=== PATIENT | female | born 1960 | race African-American/Black ===

== ENCOUNTER 2019-06-29 08:17 | Day surgery (SDC) ==
[2019-06-16 08:19] LABS: URINE SOURCE CLEAN CATCH
[2019-06-16 08:31] LABS: BASO# 0.05 X1000 (0.0-0.2); BASO% 0.5 % (0.0-0.8); EOS% 1.9 % (0.0-10.0); HEMATOCRIT 41.2 % (37.0-47.0); HEMOGLOBIN 13.3 g/dL (12.0-16.0); IMM GRAN# 0.02 X1000 (0.0-0.04); IMM GRAN% 0.2 % (0.0-0.5); LYMPH# 4.06 X1000 (1.2-3.4); LYMPH% 39.4 % (20.5-51.1); MCH 27.1 PG (27-31); MCHC 32.3 g/dL (33-37); MCV 84.1 FL (81-99); MONO# 0.68 X1000 (0.11-0.59); MONO% 6.6 % (1.7-9.3); MPV 11.4 FL (7.4-10.4); NEUT# 5.29 X1000 (1.4-6.5); NEUT% 51.4 % (42.2-75.2); PLT 261 X1000 (130-400); RDW 14.3 % (11.5-14.5)
[2019-06-16 08:32] LABS: BILIRUBIN URINE NEGATIVE (NEGATIVE); BLOOD URINE SMALL (NEGATIVE); COLOR YELLOW; GLUCOSE URINE NEGATIVE (NEGATIVE); KETONE URINE TRACE mg/dL (NEGATIVE); LEUKOCYTES URINE NEGATIVE (NEGATIVE); NITRITE URINE NEGATIVE (NEGATIVE); PH URINE 5.5; PROTEIN URINE 300 mg/dL (NEGATIVE); SP GRAVITY URINE 1.028; TURBIDITY URINE CLEAR (CLEAR); UR EPITHELIAL CELLS <10 /HPF (<10); URINE BACTERIA 2+ /HPF; URINE WBC <10 /HPF (<10); UROBILINOGEN URINE 2 mg/dL (NORMAL)
[2019-06-16 08:36] LABS: INR 0.93; PROTIME 12.6 Seconds (11.0-16.0)
[2019-06-16 08:38] LABS: HEMOGLOBIN A1C 5.5 % (4.8-6.0)
[2019-06-16 08:45] LABS: AGAP 14; BUN 13 mg/dL (8-22); CALCIUM 10.1 mg/dL (8.8-10.2); CHLORIDE 105 mmol/L (98-107); COSMO 284; CREATININE 0.7 mg/dL (0.5-0.9); ESTIMATED GFR > 60; GLUCOSE 87 mg/dL (70-104); POTASSIUM 3.7 mmol/L (3.5-5.1); SODIUM 143 mmol/L (136-145); TCO2 24 mmol/L (25-35)
--- NOTE | 2019-06-16 08:48 | EKG Report ---
Test Performed on : 06/16/2019 07:49:27 AM Test Reason : PAT Blood Pressure : / mmHG Vent. Rate : 094 BPM Atrial Rate : 094 BPM P-R Int : 150 ms QRS Dur : 096 ms QT Int : 366 ms P-R-T Axes : 063 060 025 degrees QTc Int : 457 ms Normal sinus rhythm. Septal infarct , age undetermined Abnormal ECG No previous ECGs available Confirmed by Yanelis HARDWICK, Hernandez Alvarez ([id number]) on 06/17/2019 7:42:27 PM
[2019-06-29] MEDS ORDERED: PEPCID ONE (08:27)
[2019-06-29] MEDS ORDERED: COLACE ONE (08:27)
[2019-06-29] MEDS ORDERED: REGLAN ONE (08:27)
[2019-06-29] MEDS ORDERED: LR 1,000 ML ONE (08:28)
[2019-06-29] MEDS ORDERED: KEFZOL 1 GM/D5W 2 GM/100 ML IVPB ONE (08:28)
[2019-06-29] MEDS ORDERED: LYRICA ONE (08:28)
[2019-06-29] MEDS ORDERED: VERSED ONE ×2 (09:52→10:53)
[2019-06-29] MEDS ORDERED: FENTANYL ONE (09:53)
[2019-06-29] MEDS ORDERED: SODIUM CHLORIDE 0.9% ONE (10:11)
[2019-06-29] MEDS ORDERED: TORADOL ONE (10:11)
[2019-06-29] MEDS ORDERED: CYKLOKAPRON 1,000 MG/NS 1,000 MG/100 ML IVPB ONE ×2 (10:11→10:13)
[2019-06-29] MEDS ORDERED: VANCOMYCIN ONE (10:11)
[2019-06-29] MEDS ORDERED: MARCAINE 0.25% PF ONE (10:11)
[2019-06-29] MEDS ORDERED: DURAMORPH ONE (10:11)
[2019-06-29] MEDS ORDERED: EXPAREL 1.3% ONE (10:12)
[2019-06-29] MEDS ORDERED: DIPRIVAN 1% ONE (10:27)
[2019-06-29] MEDS ORDERED: ZOFRAN ONE (11:07)
[2019-06-29] MEDS ORDERED: DECADRON ONE (11:07)
[2019-06-29] MEDS ORDERED: OFIRMEV 1000 MG/ISOTONIC SOLN 1,000 MG/100 ML BOTTLE ONE (11:07)
[2019-06-29] MEDS ORDERED: XYLOCAINE-MPF 2% ONE (11:08)
[2019-06-29 11:20] LABS: URINE SOURCE CATH
[2019-06-29 11:25] LABS: BILIRUBIN URINE NEGATIVE (NEGATIVE); BLOOD URINE TRACE (NEGATIVE); COLOR YELLOW; GLUCOSE URINE NEGATIVE (NEGATIVE); KETONE URINE NEGATIVE (NEGATIVE); LEUKOCYTES URINE NEGATIVE (NEGATIVE); NITRITE URINE NEGATIVE (NEGATIVE); PH URINE 5.5; PROTEIN URINE 70 mg/dL (NEGATIVE); TURBIDITY URINE CLEAR (CLEAR); UROBILINOGEN URINE NORMAL (NORMAL)
[2019-06-29 11:43] LABS: SP GRAVITY URINE 1.013
[2019-06-29 11:44] LABS: UR EPITHELIAL CELLS <10 /HPF (<10); URINE BACTERIA NEGATIVE /HPF; URINE RBC <10 /HPF (<10); URINE WBC <10 /HPF (<10)
[2019-06-29] MEDS ORDERED: NS 1,000 ML ONE (12:16)
--- NOTE | 2019-06-29 12:39 | Diag Imaging Result Doc PS360 ---
EXAM: KNEE 1-2 VIEWS-LEFT INDICATION: lt tka TECHNIQUE: 2 views COMPARISON: None. FINDINGS: There has been a very recent left knee arthroplasty. The arthroplasty hardware is in the expected position. There is no evidence of periprosthetic fracture. Anterior skin latrice and a drainage catheter are in place. IMPRESSION: Satisfactory postoperative knee. Electronically signed by Jeremie Hutson 06/29/2019 12:36 PM
--- NOTE | 2019-06-29 12:40 | OPERATIVE NOTE ---
PROCEDURE DATE: 06/29/2019 PREOPERATIVE DIAGNOSIS: Degenerative joint disease, left knee. POSTOPERATIVE DIAGNOSIS: Degenerative joint disease, left knee. PROCEDURE PERFORMED: Left total knee replacement. SURGEON: Roberto Carranza M.D. EMS EDUCATOR: MINISTERIO Hardy. Mr. Phoenix was necessary for proper retraction and manipulation of the leg during the case. ANESTHESIA: Spinal. COMPLICATIONS: None. PROCEDURE IN DETAIL: This 58-year-old female presents for a left total knee replacement. Risks, benefits, and no guarantees were discussed, and she is willing to proceed. She was taken to the operating room, and satisfactory anesthesia obtained. The left knee was prepped and draped in the usual sterile fashion. A time-out was taken to confirm operative site, procedure, and patient. The leg was wrapped with an Esmarch, and tourniquet inflated to 300 mmHg. A midline incision was made, followed by a medial quad tendon-sparing arthrotomy. The patella was everted and resurfaced with freehand technique. The patella subluxed laterally, and the knee flexed, and intramedullary hole made in the distal femur. The distal femoral cutting block was secured in 5 degrees of valgus, and distal femoral resection made. The distal femur was sized to a size 6 femoral component. The 4-in-1 block was secured, and the anterior, posterior, and chamfer cuts sequentially made. The PCL was retained, and the knee flexed with the PCL retractor behind the tibia to protect the PCL neurovascular bundle. The tibial cutting block was secured, and the tibial resection made. Flexion and extension gaps were noted to be roughly equal with a 5 mm poly spacer block. The tibia was sized to a size 6 tibial tray. Trial reduction was performed with a 6 tibial tray, a 5 mm thick poly, and a 6 cruciate retaining femoral component with good range of motion and stability. A 6 narrow component was selected. The patella was trialed with a 35 medialized dome patella. The drill holes were placed for the patella and femoral implants, and the trial components removed. The bony surfaces were then thoroughly irrigated with pulsatile lavage. After drying the surfaces, cement with a gram of vancomycin was utilized to cement a [employer] size 6 rotating platform base plate, a size 6 left cruciate retaining femoral component, and a 35 medialized dome patella. While the cement cured, the excess cement was removed with a Preston elevator. The joint capsule was injected with Exparel for pain management, and a Hemovac drain placed. After curing the cement, a size 6, 5 mm thick cruciate retaining polyethylene bearing was inserted into the knee, and the knee reduced. Final range of motion was 0 to 130 degrees with midline patellar tracking. The arthrotomy was copiously irrigated with irrigant. It was closed over the drain with #1 Vicryl in the arthrotomy, 2-0 Vicryl in the subcutaneous and skin, Dermabond, and adhesive dressings. Tourniquet was released with good return of capillary blood flow. No intraoperative complications were noted. Instrument count and sponge count were correct at the time of closure. She was transferred to the recovery room in stable condition. cc: Jeremie Carranza MD
[2019-06-29] MEDS ORDERED: ZOFRAN ODT PO PRN (13:00)
[2019-06-29] MEDS ORDERED: MORPHINE IV PRN ×2 (13:00)
[2019-06-29] MEDS: NS 1,000 ML IV SCH (16:06)
[2019-06-29] MEDS: OXY IR PO PRN ×3 (16:06→22:22)
[2019-06-29] MEDS: ULTRAM PO SCH ×2 (16:07→18:32)
[2019-06-29] MEDS ORDERED: KLONOPIN PO PRN (18:07)
--- NOTE | 2019-06-29 18:10 | ORTHOPAEDICS PROGRESS NOTE ---
DATE: 06/29/2019 SUBJECTIVE DATA: Ms. Jay is seen postop day 0 of her left total knee arthroplasty. She states she is doing well at this time. She denies nausea. She reports that she has walked around the nurse's station with physical therapy without problems. OBJECTIVE DATA: There is good sensation in the left lower extremity. There are good pedal pulses. There is a negative Homans sign. Her bandages are clean and dry. Vital signs are stable. ASSESSMENT: Degenerative joint disease, left knee with left total knee arthroplasty. PLAN: Plan on checking Ms. Jay in the mornings and see how she is doing. We will keep her overnight in the hospital for observation. Dictated by MINISTERIO Hardy for Jeremie Carranza MD cc: MINISTERIO Hardy MD
[2019-06-29] MEDS: TYLENOL PO SCH (18:32)
[2019-06-29] MEDS: KEFZOL 2 GM/D5W 2 GM/50 ML IVPB IV SCH (18:32)
[2019-06-29] MEDS: MORPHINE IV PRN (20:29)
[2019-06-29] MEDS: AZULFIDINE PO SCH (22:22)
[2019-06-29] MEDS: GLUCOPHAGE PO SCH (22:23)
[2019-06-29] MEDS: COLACE PO SCH (22:24)
[2019-06-30] MEDS: NS 1,000 ML IV SCH ×2 (02:51→16:35)
[2019-06-30] MEDS: TYLENOL PO SCH ×4 (02:51→21:44)
[2019-06-30] MEDS: KEFZOL 2 GM/D5W 2 GM/50 ML IVPB IV SCH (02:51)
[2019-06-30] MEDS: ULTRAM PO SCH ×4 (02:51→23:52)
[2019-06-30] MEDS: MORPHINE IV PRN (03:59)
[2019-06-30] MEDS: ZOFRAN IV PRN ×2 (04:31→08:40)
[2019-06-30 06:00] LABS: HEMATOCRIT 34.1 % (37.0-47.0); HEMOGLOBIN 11.2 g/dL (12.0-16.0)
[2019-06-30] MEDS ORDERED: INSULIN PEN NEEDLES ONE (06:30)
[2019-06-30 06:37] LABS: AGAP 13; BUN 8 mg/dL (8-22); CHLORIDE 106 mmol/L (98-107); COSMO 282; CREATININE 0.6 mg/dL (0.5-0.9); ESTIMATED GFR > 60; GLUCOSE 108 mg/dL (70-104); POTASSIUM 3.9 mmol/L (3.5-5.1); SODIUM 142 mmol/L (136-145); TCO2 23 mmol/L (25-35)
[2019-06-30] MEDS: OXY IR PO PRN ×3 (06:59→21:47)
[2019-06-30] MEDS: SYNTHROID PO SCH (06:59)
[2019-06-30] MEDS: NORVASC PO SCH (08:46)
[2019-06-30] MEDS: COLACE PO SCH ×2 (08:46→21:44)
[2019-06-30] MEDS: AZULFIDINE PO SCH ×2 (08:46→21:43)
[2019-06-30] MEDS: ASPIRIN PO SCH (08:46)
[2019-06-30] MEDS: FOLIC ACID PO SCH (08:47)
[2019-06-30] MEDS: GLUCOPHAGE PO SCH ×2 (08:47→16:41)
[2019-06-30] MEDS: PERIDEX MT SCH ×3 (08:47→21:44)
[2019-06-30] MEDS: JANUVIA PO SCH (08:47)
[2019-06-30] MEDS: LOTENSIN PO SCH (08:47)
[2019-06-30] MEDS: VICTOZA SUBQ SCH (08:55)
[2019-06-30] MEDS: PEPCID PO SCH (09:23)
[2019-06-30] MEDS ORDERED: SODIUM CHLORIDE 0.9% INJ ONE (11:26)
[2019-06-30] MEDS ORDERED: PHENERGAN IV ONE (11:26)
--- NOTE | 2019-06-30 13:02 | ORTHOPAEDICS PROGRESS NOTE ---
DATE: 06/30/2019 SUBJECTIVE DATA: Ms. Rodrigez is seen postop day 1 of her left total knee arthroplasty. She reports she did have several episodes of vomiting today and just vomited again, most recently about 10 minutes ago. She states that this just started this morning and is not ready to go home yet. She states her knee pain is under control at this time. OBJECTIVE DATA: There is good sensation to the left lower extremity. Bandages are clean and dry. The drain is still intact. There is negative Homans sign. Vital signs have been stable. ASSESSMENT: 1. Degenerative joint disease of the left knee with left total knee arthroplasty. 2. Nausea and vomiting. PLAN: We will plan on keeping Ms. Jay another day in the hospital. I will give her some IV Phenergan, dilute it in normal saline. We will check back on her in the morning and see if she is ready for discharge. We will keep the IV fluids going for now. Dictated by MINISTERIO Hardy for Jeremie Carranza MD cc: MINISTERIO Hardy MD
[2019-07-01] MEDS: TYLENOL PO SCH ×2 (03:22→09:42)
[2019-07-01] MEDS: OXY IR PO PRN ×2 (03:22→07:37)
[2019-07-01 07:10] LABS: HEMATOCRIT 34.1 % (37.0-47.0); HEMOGLOBIN 11.1 g/dL (12.0-16.0)
[2019-07-01] MEDS: SYNTHROID PO SCH (07:37)
[2019-07-01 08:00] VITALS: BP 164/73
[2019-07-01] MEDS: ULTRAM PO SCH ×2 (08:29→09:49)
[2019-07-01] MEDS: AZULFIDINE PO SCH (09:41)
[2019-07-01] MEDS: COLACE PO SCH (09:42)
[2019-07-01] MEDS: LOTENSIN PO SCH (09:42)
[2019-07-01] MEDS: GLUCOPHAGE PO SCH (09:42)
[2019-07-01] MEDS: JANUVIA PO SCH (09:42)
[2019-07-01] MEDS: ASPIRIN PO SCH (09:42)
[2019-07-01] MEDS: PEPCID PO SCH (09:42)
[2019-07-01] MEDS: FOLIC ACID PO SCH (09:43)
[2019-07-01] MEDS: NORVASC PO SCH (09:43)
[2019-07-01] MEDS: PERIDEX MT SCH (09:43)
[2019-07-01] MEDS: VICTOZA SUBQ SCH (09:44)
--- NOTE | 2019-07-02 06:40 | DISCHARGE SUMMARY ---
ADMISSION DATE: 06/29/2019 DISCHARGE DATE: 07/01/2019 ADMITTING DIAGNOSIS: Degenerative joint disease of the left knee with left total knee arthroplasty. DISCHARGE DIAGNOSIS: Degenerative joint disease of the left knee with left total knee arthroplasty. PRINCIPLE PROCEDURE: Left total knee arthroplasty. PAST MEDICAL HISTORY: Diabetes type 2, GERD, hypertension, osteoporosis, and osteoarthritis. ALLERGIES: The patient reports she is allergic to NSAIDs. HOSPITAL COURSE: The patient was taken to the operating room on 06/29/2019, where a left total knee arthroplasty was performed. She tolerated the procedure well. She was transferred to recovery room and did well. She was transferred to the surgical floor where she did well the first night and walked with therapy. The second day she started developing some nausea and vomiting. We decided to keep her in the hospital, and give her some IV Phenergan. She started doing much better after that. Mechanical and DVT prophylaxis were performed. Routine postop antibiotics were administered. Drain was discontinued on postop day 2. Physical Therapy was initiated, and the patient walked about 100 feet without much difficulty. She is able to spontaneously void. She transitioned to oral pain medications. Incision remained clean, dry, and intact during hospital stay. There has been no pain with calf squeeze. She was felt ready to be discharged on 07/01/2019. DISPOSITION: She is to be discharged home with home therapy. FOLLOWUP: She is to follow up Dr. Carranza in roughly 10 days to have her latrice removed. DISCHARGE INSTRUCTIONS: She is going to be home with home therapy at this time. We will discharge her with some Phenergan for nausea. We will also place her on Bactrim DS twice daily for infection prevention, aspirin 325 b.i.d. for DVT prophylaxis. I have given her [place]iss[place] 10 for pain. She is to call with any questions or concerns. Dictated by MINISTERIO Hardy for Jeremie Carranza MD cc: MINISTERIO Hardy MD
== END 2019-07-01 11:32 | disposition home or self-care (01) ==
LOC: 4N 08:17 → OR 08:17
PROVIDERS: ATTEND Orthopaedic Surgery Adult Reconstructive Orthopaedic Surgery